=== PATIENT | male | born 1955 | race Caucasian/White ===

== ENCOUNTER → 2016-08-26 | Outpatient (CLI) | payer BC ==
[~2016-08-26] MED LIST: ASPI81TA28 PO; ATOR-24 PO; CEPH500C PO; FOLI1TAB7 PO; METF-384 PO; NTRGSL/4 UT; TPRSR/25 PO
[2016-08-26 12:39] LABS: ALT/SGPT 26 U/L (12-78); AST/SGOT 13 U/L (15-37); BLOOD UREA NITROGEN 16 mg/dl (7-18); BUN/CREATININE RATIO 14.4 (10-20); CALCIUM 8.7 mg/dl (8.5-10.1); CARBON DIOXIDE 30 mmol/L (21-32); CHLORIDE 106 mmol/L (98-107); GLUCOSE 105 mg/dl (70-99); SODIUM 142 mmol/L (136-145)
[2016-08-26 12:47] LABS: ALB/GLOB RATIO 1.4 (0.9-2); ALKALINE PHOSPHATASE 60 U/L (45-117); CHOLESTEROL 110 mg/dl (0-200); CHOLESTEROL/HDL RATIO 3.5; HDL CHOLESTEROL 31 mg/dl; LDL CHOLESTEROL CALCULATED 44 mg/dl; TRIGLYCERIDES 174 mg/dl (0-150); VERY LOW DENSITY LIPOPROT CALC 35 mg/dl
[2016-08-26 12:48] LABS: RATIO 3.9 mcg/mg (0-30.0)
[2016-08-26 13:29] LABS: ESTIMATED AVERAGE GLUCOSE 128 mg/dl; HA1C FLAG Normal (Normal)
== END ==
LOC: C.LAB 10:47
PROVIDERS: ATTEND Internal Medicine
DX: E11.9 Type 2 diabetes mellitus without complications (principal); Z12.5 Encounter for screening for malignant neoplasm of prostate

== ENCOUNTER → 2016-09-11 | Outpatient (CLI) | payer BC ==
--- NOTE | 2016-09-11 10:23 | DIAGNOSTIC IMAGING REPORT ---
ULTRASOUND RIGHT FOREARM NONVASCULAR CLINICAL HISTORY: Skin lesion. FINDINGS: Real-time, grayscale, and color Doppler sonography of the right forearm is performed in the indicated site of interest. Within the subcutaneous fat and superficial to the forearm musculature, there is a 1.9 x 0.6 x 1.5 cm slightly hypoechoic well-circumscribed lesion which largely blends into the surrounding subcutaneous fat. No fluid collection is seen. IMPRESSION: There is a 1.9 cm pathologically indeterminant lesion at the site of interest that is typical in appearance for a small lipoma. Clinical correlation will be required. Dictated: 09/11/2016 9:15 AM Transcribed: 09/11/2016 10:23 AM [email or web address] Electronically signed by: Phuc Mendez M.D. 09/11/2016 10:28 AM Dictated Date/Time: 09/11/2016 9:15 AM
== END | disposition home or self-care (01) ==
LOC: C.ULTR 08:52
PROVIDERS: ATTEND Internal Medicine
DX: L72.9 Follicular cyst of the skin and subcutaneous tissue, unspecified (principal)

== ENCOUNTER → 2016-11-04 | Outpatient (CLI) | payer BC ==
[2016-11-04 11:12] LABS: URINE APPEARANCE CLEAR (CLEAR); URINE BILIRUBIN NEG (NEG); URINE COLOR YELLOW; URINE NITRITE NEG (NEG); URINE PH 6.5 (4.5-7.5); URINE SPECIFIC GRAVITY 1.017 (1.000-1.030); UROBILINOGEN NEG (NEG); ZZUR CULT IF INDIC CLEAN CATCH NO
[2016-11-04 11:13] LABS: MANUAL MICROSCOPIC REQUIRED? NO; REVIEW REQ? NO
== END | disposition home or self-care (01) ==
LOC: C.LAB 09:16
PROVIDERS: ATTEND Internal Medicine
DX: R97.20 Elevated prostate specific antigen [PSA] (principal)

== ENCOUNTER 2016-11-17 16:40 | Emergency (ER) | payer BC ==
[~2016-11-17] VITALS: Ht 172.7 cm; Wt 88.5 kg
[2016-11-17 16:45] VITALS: TEMP 36.7; Ht 172.7 cm; Wt 88.5 kg
[2016-11-17] MEDS ORDERED: IBUPROFEN 600 MG TAB PO STA (17:30)
[2016-11-17] MEDS ORDERED: ATOR-24 PO (17:55)
[2016-11-17] MEDS ORDERED: FOLI1TAB7 PO (17:55)
[2016-11-17] MEDS ORDERED: ASPI81TA28 PO (17:55)
[2016-11-17] MEDS ORDERED: METF-384 PO (17:55)
[2016-11-17] MEDS ORDERED: TPRSR/25 PO (17:55)
[2016-11-17] MEDS ORDERED: NTRGSL/4 UT (17:58)
[2016-11-17 18:10] LABS: BASO % 0.2 %; BASO ABS # 0.02 K/uL (0-0.2); EOS % 0.6 %; IG% 0.2 %; LYMPH % 17.7 %; LYMPH ABS # 1.68 K/uL (1.2-3.4); MEAN CELL VOLUME 60.6 fL (80-100); MEAN CORPUSCULAR HEMOGLOBIN 20.1 pg (25-34); MEAN CORPUSCULAR HGB CONC 33.2 g/dl (32-36); MEAN PLATELET VOLUME 9.5 fL (7.4-10.4); NEUT % 73.3 %; PLATELET COUNT 281 K/uL (130-400); RED BLOOD COUNT 6.11 M/uL (4.7-6.1); WHITE BLOOD COUNT 9.51 K/uL (4.8-10.8)
--- NOTE | 2016-11-17 18:58 | DIAGNOSTIC IMAGING REPORT ---
LEFT HAND 3 VIEWS CLINICAL HISTORY: Left hand pain. FINDINGS: 3 views of left hand are obtained. No priors skeletal structures are well mineralized. No fracture is seen. Minimal osteoarthritic change is present in the distal interphalangeal joints and the first metacarpophalangeal joint. The joint spaces of the hand are otherwise preserved. The soft tissues of the hand are normal in appearance. Soft tissue edema is noted in the distal forearm. IMPRESSION: No acute bony abnormality is identified in the left hand. Electronically signed by: Phuc Mendez M.D. 11/17/2016 6:57 PM Dictated Date/Time: 11/17/2016 6:55 PM
--- NOTE | 2016-11-17 19:00 | DIAGNOSTIC IMAGING REPORT ---
LEFT FOREARM 2 VIEWS CLINICAL HISTORY: Left wrist/forearm pain and swelling. No reported history of trauma. FINDINGS: AP and lateral views of the left forearm are obtained. No prior studies are available for comparison at the time of dictation. The skeletal structures are well mineralized. No fracture is seen. The wrist and elbow joints are grossly maintained. Mild negative ulnar variance is suggested. Soft tissue edema is present around the wrist and distal forearm. No radiodense foreign body is seen. No subcutaneous gas is identified. IMPRESSION: Soft tissue edema with no acute bony abnormality identified in the left forearm. Electronically signed by: Phuc Mendez M.D. 11/17/2016 6:59 PM Dictated Date/Time: 11/17/2016 6:57 PM
--- NOTE | 2016-11-17 19:10 | EMERGENCY ROOM VISIT NOTE ---
ED Visit Note First contact with patient: 16:51 The patient was seen and examined with Zulema Vila PA-C. I agree with the history, physical and findings. Please see the note for disposition and details. The patient has red streaking going up the forearm. No crepitus. No abscess. There is no erythema or redness to the joint. This is concerning for a lymphangitis. There was no trauma. X-rays unremarkable. Blood work was unremarkable. The patient was given IV Rocephin and will be placed on antibiotics. Will follow-up closely as an outpatient or return for any worsening symptoms. I gave my usual and customary discussion regarding this issue.
[2016-11-17 19:40] LABS: ANISOCYTOSIS PRESENT; COMPLETE YES; MICROCYTOSIS PRESENT; POLYCHROMASIA 1+; SPHEROCYTE OCCASIONAL
[2016-11-17 19:53] LABS: LYME DISEASE AB IGG NEG (NEG); LYME DISEASE AB IGM NEG (NEG)
[2016-11-17] MEDS ORDERED: CEFTRIAXONE SOD INJ 1 GM ADDVIAL IV STA (19:53)
[2016-11-17] MEDS ORDERED: CEPHALEXIN 500MG HOME PACK 1 EA BTL PO ONE (21:45)
--- NOTE | 2016-11-17 21:49 | EMERGENCY ROOM VISIT NOTE ---
ED Visit Note First contact with patient: 16:51 CHIEF COMPLAINT: Wrist injury HISTORY OF PRESENT ILLNESS: This 61-year-old male patient presents to the emergency department ambulatory, with his family, complaining of pain and swelling in the left wrist spontaneously. He said he initially noticed the pain and swelling more distally in the left left wrist 2 days ago. Patient does occasionally get medial pain, which he describes as "nerve pain" with movement of his hand. He states this is what he thought he was experiencing 2 days ago. Patient states yesterday the pain seemed to migrate towards the lateral wrist and today he noticed pain on the proximal wrist, anteriorly. Patient denies redness or warmth. Patient denies injury, but states last weekend he was working in the yard using a shovel. The patient is able to move their wrist, however this causes extreme pain. The patient states the pain is constant and achy and 3/10 at rest however pain increases to a 7-8 out of 10 with movement or palpation. No laceration, weakness due to pain. No numbness or tingling. The patient denies any other injury. The patient is able to move their elbow without difficulty, however patient troubles with moving his fingers due to pain. The patient has not had a previous fracture to this wrist. The patient has taken no medications for the pain. He did try using ice, but states this did not help. Patient does state a hot shower helped this morning. Patient denies chest pain, dizziness, dyspnea, other edema, redness, numbness or tingling. REVIEW OF SYSTEMS: A 10 system review of systems was performed with positives and pertinent negatives in the HPI. ALLERGIES: None MEDICATIONS: Metoprolol, atorvastatin, metformin PMH: Diabetes, hyperlipidemia, coronary artery disease with history of cardiac stent in March 2012 SOCIAL HISTORY: Patient lives locally with his family. Patient denies tobacco or drug use. Patient reports occasional alcohol use but has not drink today. Patient does state he had a cigar prior to arrival in the emergency department. PHYSICAL EXAM: Vital Signs: Reviewed Nurse's notes, vital signs stable. GENERAL : 61-year-old male, in no acute distress, but appears to be in pain, well- developed, well-nourished. NEURO: Alert and oriented to person place and time. Normal sensation to light and sharp touch. CARDIAC: RRR. No murmurs. No LE edema noted. PULMONARY: Bilateral breath sounds clear and equal in anterior and posterior lung alves. MUSCULOSKELETAL: There is circumferential swelling around the proximal aspect of the left wrist. There is tenderness and edema over the proximal aspect of the left wrist. There is no snuff box tenderness. Range of motion is limited due to pain. There is no tenderness of the elbow, hand or fingers. Degreasing Solution Mixer strength 3/5 initially, however improved to 5/5 and swelling subsided after antibiotics. Radial pulse 2+. SKIN: Normal and intact. The hand is warm and well perfused with capillary refill less than 2 seconds. EMERGENCY DEPARTMENT COURSE: I examined the patient. An X-ray of the left forearm and hand were reviewed by myself and Dr. Mendez and showed: Forearm: FINDINGS: AP and lateral views of the left forearm are obtained. No prior studies are available for comparison at the time of dictation. The skeletal structures are well mineralized. No fracture is seen. The wrist and elbow joints are grossly maintained. Mild negative ulnar variance is suggested. Soft tissue edema is present around the wrist and distal forearm. No radiodense foreign body is seen. No subcutaneous gas is identified. IMPRESSION: Soft tissue edema with no acute bony abnormality identified in the left forearm. Hand: FINDINGS: 3 views of left hand are obtained. No priors skeletal structures are well mineralized. No fracture is seen. Minimal osteoarthritic change is present in the distal interphalangeal joints and the first metacarpophalangeal joint. The joint spaces of the hand are otherwise preserved. The soft tissues of the hand are normal in appearance. Soft tissue edema is noted in the distal forearm. IMPRESSION: No acute bony abnormality is identified in the left hand. Labs were completed as noted. Patient does report a history of thalassemia minor, which explains his abnormal CBC. He states he did have recent blood work completed by his PCP approximately 2 weeks ago which was fine. Negative d- dimer and negative Lyme disease titer completed in the ER. Patient was given 1 g Rocephin IV. Significant improvement in redness, swelling , discomfort noticed immediately after antibiotics. The patient was discharged home in good condition. Patient is advised to take Keflex as prescribed. DIAGNOSIS: Phlebitis DIFFERENTIAL DIAGNOSIS: Cellulitis, contusion, sprain, thrombophlebitis, Lyme disease, fracture, among others. DISCHARGE INSTRUCTIONS & TREATMENT: Use heat and keep the wrist elevated for 24- 48 hrs. Ibuprofen, 600mg and Tylenol 1000 mg every 6 hours if needed for the pain. Follow up with your family doctor in 2-3 days return to the emergency department immediately if he notices increased swelling, redness, drainage, fever, chills, nausea, body aches, vomiting. Current/Historical Medications Scheduled Aspirin (Aspirin Ec), 81 MG PO DAILY Atorvastatin (Lipitor), 40 MG PO DAILY Cephalexin Monohydrate (Keflex), 500 MG PO QID Folic Acid (Folvite), 1 MG PO DAILY Metformin Hcl (Glucophage), 1,000 MG PO BIDM Metoprolol Succinate (Metoprolol Succinate ER), 25 MG PO DAILY Scheduled PRN Nitroglycerin (Nitrostat), 0.4 MG UT UD PRN for Chest Pain Allergies Coded Allergies: Rosuvastatin (Verified Allergy, Intermediate, Itchiness, 11/17/16) Vital Signs Date Time Temp Pulse Resp B/P (MAP) Pulse Ox O2 Delivery O2 Flow Rate FiO2 11/17/16 22:14 74 16 133/76 99 11/17/16 20:45 76 16 127/72 98 Room Air 11/17/16 18:50 84 16 96 Room Air 11/17/16 16:45 36.7 91 18 135/88 94 Room Air Laboratory Results 11/17/16 17:57 Red Blood Count 6.11, Mean Corpuscular Volume 60.6, Mean Corpuscular Hemoglobin 20.1, Mean Corpuscular Hemoglobin Concent 33.2, Mean Platelet Volume 9.5, Neutrophils (%) (Auto) 73.3, Lymphocytes (%) (Auto) 17.7, Monocytes (%) (Auto) 8.0, Eosinophils (%) (Auto) 0.6, Basophils (%) (Auto) 0.2, Neutrophils # (Auto) 6.97, Lymphocytes # (Auto) 1.68, Monocytes # (Auto) 0.76, Eosinophils # (Auto) 0.06, Basophils # (Auto) 0.02 Test 11/17/16 17:57 White Blood Count 9.51 K/uL (4.8-10.8) Red Blood Count 6.11 M/uL (4.7-6.1) Hemoglobin 12.3 g/dL (14.0-18.0) Hematocrit 37.0 % (42-52) Mean Corpuscular Volume 60.6 fL (80-100) Mean Corpuscular Hemoglobin 20.1 pg (25-34) Mean Corpuscular Hemoglobin Concent 33.2 g/dl (32-36) Platelet Count 281 K/uL (130-400) Mean Platelet Volume 9.5 fL (7.4-10.4) Neutrophils (%) (Auto) 73.3 % Lymphocytes (%) (Auto) 17.7 % Monocytes (%) (Auto) 8.0 % Eosinophils (%) (Auto) 0.6 % Basophils (%) (Auto) 0.2 % Neutrophils # (Auto) 6.97 K/uL (1.4-6.5) Lymphocytes # (Auto) 1.68 K/uL (1.2-3.4) Monocytes # (Auto) 0.76 K/uL (0.11-0.59) Eosinophils # (Auto) 0.06 K/uL (0-0.5) Basophils # (Auto) 0.02 K/uL (0-0.2) RDW Standard Deviation 35.3 fL (36.4-46.3) RDW Coefficient of Variation 16.5 % (11.5-14.5) Immature Granulocyte % (Auto) 0.2 % Immature Granulocyte # (Auto) 0.02 K/uL (0.00-0.02) Polychromasia 1+ Anisocytosis PRESENT Microcytosis PRESENT Spherocytes OCCASIONAL D-Dimer < 190 ug/L FEU (0-500) Lyme Disease IgG Antibody NEG (NEG) Lyme Disease IgM Antibody NEG (NEG) Medications Administered Medications (Trade) Dose Ordered Sig/James Route Start Time Stop Time Status Last Admin Dose Admin Ibuprofen (Motrin Tab) 600 mg NOW STAT PO 11/17/16 17:30 11/17/16 17:32 DC 11/17/16 18:07 600 MG Ceftriaxone Sodium (Rocephin Inj) 1 gm NOW STAT IV 11/17/16 19:53 11/17/16 19:54 DC 11/17/16 19:53 1 GM Departure Information Impression Primary Impression: Phlebitis alone Additional Impression: Soft tissue swelling of non-joint region Dispostion Home / Self-Care Condition GOOD Prescriptions Cephalexin Monohydrate (Keflex) 500 Mg Cap 500 MG PO QID for 9 Days, #36 CAP Prov: Zulema Vila, PACleveland 11/17/16 Referrals RV. Uribe MD (PCP) Patient Instructions My [facility] [address] Additional Instructions You have been treated in the Emergency Department today for your Phlebitis. This is an irritation of a vein close to the surface of the skin. The irritation you are experiencing can be minimized with warm, moist heat. You can use a washcloth soaked in warm water applied over the affected area. The heat helps to decrease the irritation and soothe the irritation. He received dose of Rocephin in the emergency department. He was given a prescription for Keflex 500 mg 4 times per day for 10 days. Begin this medication tomorrow as directed. Discussion with patient regarding possible side effects of antibiotics. Cephalexin(Keflex) 500mg: Take one pill four times daily for 10 days for your skin infection. All antibiotics can cause diarrhea. If this occurs and you feel worse or it does not resolve in 1-2 days follow up with your doctor or return to the Emergency Department as this could be signs of serious underlying problems. Any medication can cause an allergic reaction, stop the pills immediately and return to the ER for rash, hives, breathing difficulties, or swelling. Recommended a probiotic while on antibiotic to help prevent diarrhea. In addition, you should use: - Regular strength (200 mg/tab) Advil (ibuprofen) 1-2 tabs every 4-6 hours as needed. Do not exceed a dose of 3200 mg per day. Ibuprofen is an anti- inflammatory that will help to decrease the inflammation of the vein and decrease your discomfort. Follow-up with your primary care physician on Sunday. You should return to the Emergency Department if your symptoms worsen despite the treatment plan outlined above, or if you develop the following symptoms: increased pain, swelling, streaking of the affected area, fevers, or movement of the discomfort further up your arm. Problem Qualifiers
[2016-11-17] MEDS ORDERED: CEPH500C PO (22:01)
[2016-11-17 22:14] VITALS: BP 133/76; PULSE 74; O2SAT 99
== END 2016-11-17 22:15 | disposition home or self-care (01) ==
LOC: C.EDB 16:40 → C.EDD 22:15
DX: I80.9 Phlebitis and thrombophlebitis of unspecified site (principal); M79.9 Soft tissue disorder, unspecified; M25.532 Pain in left wrist; E11.9 Type 2 diabetes mellitus without complications; E78.5 Hyperlipidemia, unspecified; I25.10 Atherosclerotic heart disease of native coronary artery without angina pectoris; Z95.5 Presence of coronary angioplasty implant and graft; Z79.82 Long term (current) use of aspirin; Z79.84 Long term (current) use of oral hypoglycemic drugs

== ENCOUNTER → 2017-02-12 | Outpatient (CLI) | payer BC ==
[~2017-02-12] MED LIST changes: -CEPH500C PO
== END | disposition home or self-care (01) ==
LOC: C.PATHSPEC 17:26
PROVIDERS: ATTEND Urology
DX: R97.20 Elevated prostate specific antigen [PSA] (principal)

== ENCOUNTER → 2017-08-25 | Outpatient (CLI) | payer BC ==
[~2017-08-25] MED LIST changes: -FOLI1TAB7 PO; +FOLI1TAB8 PO
== END | disposition home or self-care (01) ==
LOC: C.LAB 09:22
PROVIDERS: ATTEND Urology
DX: C61 Malignant neoplasm of prostate (principal)

== ENCOUNTER → 2017-11-03 | Outpatient (CLI) | payer BC ==
[2017-11-03 10:22] LABS: BLOOD UREA NITROGEN 16 mg/dl (7-18); CREATININE 1.08 mg/dl (0.60-1.40)
== END | disposition home or self-care (01) ==
LOC: C.LAB 08:40
PROVIDERS: ATTEND Urology
DX: R97.20 Elevated prostate specific antigen [PSA] (principal); C61 Malignant neoplasm of prostate

== ENCOUNTER → 2017-11-05 | Outpatient (CLI) | payer BC ==
[~2017-11-05] MED LIST changes: +GADAVIST IV PRN
--- NOTE | 2017-11-05 11:07 | DIAGNOSTIC IMAGING REPORT ---
PROSTATE MRI COMBO CLINICAL HISTORY: 62 years-old Male presenting with R97.20 Elevated PSAC61 Neoplasm of prostate, malignant , prior biopsy from January 2017 with Mackenzie 3+3 disease at the right mid to apex and right anterior gland. PSA not. TECHNIQUE: Multisequence, multiplanar MR imaging of the prostate was performed before and after the administration of intravenous contrast. Additional postprocessing was performed on a separate [employer] workstation by the radiologist for 3-D volumetric segmentation of the prostate and contouring of region(s) of interest (LATRELL) for targeting. IV contrast: 8.5 mL of Gadavist. COMPARISON: None. FINDINGS: Prostate: The prostate measures 3.7 x 3.1 x 3.3 cm (DynaCAD prostate boundary segmentation volume 20 mL). PSA density (PSA/prostate volume): PSA not available for calculation. Mild changes of benign prostatic hyperplasia. Precontrast T1 weighted imaging demonstrates no evidence of intrinsic T1 hyperintensity to suggest hemorrhage. Suspicious lesion(s) described below: Lesion (Ad KnightsaCAD LATRELL) 1: Location: Right posterolateral peripheral zone at the mid gland. The lesion does not extend across the midline. Size: 5 mm (as measured on ADC for PZ lesion and T2WI for TZ lesion) T2W: 4. Circumscribed, homogeneous moderately hypointense lesion. No evidence of extraprostatic extension, seminal vesicle invasion, or neurovascular bundle involvement. DWI: 3. Focal mildly/moderately hypointense on ADC and isointense/mildly hyperintense on high b-value DWI. DCE: Positive. Focal enhancement corresponding to a suspicious finding, earlier or contemporaneous with adjacent normal tissue. PI-RADS: 4. Clinically significant cancer is likely to be present. Seminal vesicles normal. Bladder: Bladder wall thickening likely indicating chronic outlet obstruction. Bowel: Diverticulosis of the sigmoid colon. Peritoneum: No free fluid in the pelvis. Lymph nodes: No lymphadenopathy in the visualized portion of the pelvis. Vasculature: Iliac vessels patent. Abdominal wall: Small fat-containing right inguinal hernia. Osseous structures: Normal bone marrow signal intensity. IMPRESSION: 1. Suspicious lesion(s) segmented for targeted biopsy. 5 mm lesion in the right peripheral zone at the mid gland. PI-RADS: 4. Clinically significant cancer is likely to be present. 2. Benign prostatic hyperplasia. Electronically signed by: Roby Gallo M.D. 11/05/2017 11:05 AM Dictated Date/Time: 11/05/2017 10:56 AM
== END | disposition home or self-care (01) ==
LOC: C.MRIBC 08:33
PROVIDERS: ATTEND Urology
DX: R97.20 Elevated prostate specific antigen [PSA] (principal); C61 Malignant neoplasm of prostate; N40.0 Benign prostatic hyperplasia without lower urinary tract symptoms